=== PATIENT | female | born 1955 | race Caucasian/White ===

== ENCOUNTER → 2016-11-12 | Outpatient (CLI) | payer OTHER ==
[~2016-11-12] MED LIST: BIOTCAP PO; DICL75TA PO; FLUO20CA4 PO; LACTCAP8 PO; LISI-515 PO; MAGN1TAB14 PO; MULT-120 PO; OXYC1TAB63 PO; POTA99TA PO; TYLE325T PO; VITA10002 PO; [UNRECOGNIZED DRUG - OTHER] PO
[2016-11-12 15:12] LABS: AUTOMATED NEUTROPHIL # 5.7 TH/MM3 (1.8-7.7); BASOPHIL # 0.1 TH/MM3 (0-0.2); BASOPHIL % 0.6 % (0.0-2.0); EOSINOPHIL # 0.1 TH/MM3 (0-0.4); HEMATOCRIT 41.3 % (35.0-46.0); HEMO FLAGS DIFF FINAL; LYMPH % 26.1 % (9.0-44.0); LYMPHOCYTE # 2.3 TH/MM3 (1.0-4.8); MEAN CELL VOLUME 80.5 FL (80.0-100.0); MEAN CORPUSCULAR HEMOGLOBIN 26.9 PG (27.0-34.0); MEAN CORPUSCULAR HGB CONC 33.4 % (32.0-36.0); MONO % 6.8 % (0.0-8.0); NEUT % 65.5 % (16.0-70.0); PLATELET COUNT 206 TH/MM3 (150-450); RED BLOOD COUNT 5.13 MIL/MM3 (4.00-5.30); WHITE BLOOD COUNT 8.7 TH/MM3 (4.0-11.0)
[2016-11-12 15:20] LABS: APTT (PATIENT) 27.8 SEC (24.3-30.1); PROTHROMBIN TIME - PATIENT 10.6 SEC (9.8-11.6)
[2016-11-12 15:35] LABS: ALT (GPT) 133 U/L (10-53); ANION GAP 8 MEQ/L (5-15); AST (GOT) 45 U/L (15-37); BICARBONATE 29.4 MEQ/L (21.0-32.0); BLOOD UREA NITROGEN 23 MG/DL (7-18); CHLORIDE 104 MEQ/L (98-107); GLOMERULAR FILTRATION RATE 71 ML/MIN (>89); GLUCOSE,FASTING 94 MG/DL (74-99); POTASSIUM 4.7 MEQ/L (3.5-5.1); SODIUM (NA) 141 MEQ/L (136-145)
[2016-11-12 15:38] LABS: ALKALINE PHOSPHATASE 125 U/L (45-117); TOTAL BILIRUBIN ADULT 0.6 MG/DL (0.2-1.0)
--- NOTE | 2016-11-12 16:14 | RADRPT ---
EXAM DATE/TIME: 11/12/2016 16:11 [place] COMPARISON: No previous studies available for comparison. INDICATIONS : Evaluate for pneumonia, pneumothorax, and communicable disease. Pre op for mass removal in abdomen. MEDICAL HISTORY : None. SURGICAL HISTORY : None. ENCOUNTER: Initial ACUITY: 1 day PAIN SCORE: 0/10 LOCATION: Bilateral chest FINDINGS: PA and lateral views of the chest demonstrate the lungs to be symmetrically aerated without evidence of mass, infiltrate or effusion. The cardiomediastinal contours are unremarkable. Osseous structure s demonstrate mild degenerative changes but are otherwise intact.. CONCLUSION: 1. No acute cardiopulmonary findings. Syed Andrea MD on November 12, 2016 at 16:12 Board Certified Radiologist. This report was verified electronically.
--- NOTE | 2016-11-13 23:32 | EKG ---
Date Performed: 11/12/2016 Time Performed: 15:09:16 PTAGE: 61 years EKG: Sinus rhythm NORMAL ECG NO PREVIOUS TRACING DOCTOR: Nish Cedillo Interpretating Date/Time 11/13/2016 23:29:30
== END ==
LOC: CPRE 14:47
PROVIDERS: ATTEND Obstetrics & Gynecology Gynecologic Oncology
DX: Z01.810 Encounter for preprocedural cardiovascular examination (principal); Z01.811 Encounter for preprocedural respiratory examination; Z01.812 Encounter for preprocedural laboratory examination; R19.09 Other intra-abdominal and pelvic swelling, mass and lump
CPT/HCPCS: 36415; 71020; 80053; 82378; 85025; 85610; 85730; 86304; 93005

== ENCOUNTER 2016-11-23 08:05 | Observation (INO) | payer OTHER ==
[~2016-11-23] VITALS: Ht 165.1 cm; Wt 150.2 kg
[~2016-11-23 08:05] MED LIST changes: -OXYC1TAB63 PO
[2016-11-23] MEDS ORDERED: METOPROLOL TARTRATE 25 MG TAB PO PRN (09:00)
[2016-11-23] MEDS ORDERED: LACTATED RINGER'S 1000 ML IV SCH (09:00)
[2016-11-23] MEDS ORDERED: ceFAZolin 2 GM PREMIX 50 ML IV SCH (09:00)
[2016-11-23] MEDS: SODIUM CHLORID 0.9% 500 ML IV SCH ×2 (09:00→23:53)
[2016-11-23] MEDS ORDERED: INSULIN HUMAN REGULAR 1,000 UNITS/10 ML VIAL SQ PRN (09:00)
[2016-11-23 09:09] VITALS: BP 161/81; PULSE 82; RESP 18; TEMP 98.5; O2SAT 96
[2016-11-23] MEDS ORDERED: HEPARIN SODIUM - SQ 10,000 UNITS/ML VIAL SQ SCH (11:45)
[2016-11-23] MEDS ORDERED: PHENYLEPH/NS 1000 MCG/10 ML SYR IV ONE (12:00)
[2016-11-23] MEDS ORDERED: VECURONIUM BROMIDE 10 MG VIAL IV ONE (12:00)
[2016-11-23] MEDS ORDERED: PROPOFOL 200 MG/20 ML AMP IV ONE (12:00)
[2016-11-23] MEDS ORDERED: ONDANSETRON HCL 4 MG/2 ML VIAL IV PUSH ONE (12:00)
[2016-11-23] MEDS ORDERED: NORMOSOL R INJ 2,000 ML IV ONE (12:00)
[2016-11-23] MEDS ORDERED: LACTATED RINGER'S 1000 ML INJ 3,000 ML IV ONE (12:00)
[2016-11-23] MEDS ORDERED: ePHEDrine/NS 25 MG/5 ML SYR IV ONE (12:00)
[2016-11-23] MEDS ORDERED: ACETAMINOPHEN 1000 MG/100 ML VIAL IV ONE (15:22)
[2016-11-23] MEDS ORDERED: FAMOTIDINE 20 MG/2 ML VIAL ONE ×2 (15:22→19:38)
[2016-11-23] MEDS ORDERED: LIDOCAINE 1%/EPINEPHrine 1:100,000 SOLN 20 ML VIAL ONE (15:38)
[2016-11-23] MEDS ORDERED: DO NOT ADM ANY ANTICOAGULANT DRUGS XX PRN (19:24)
[2016-11-23] MEDS ORDERED: SODIUM CHLORIDE 0.9% FLUSH 5 ML FLUSH FLUSH PRN (19:30)
[2016-11-23] MEDS ORDERED: HYDROmorphone HCL PF 1 MG/ML VIAL IVP PRN (19:30)
[2016-11-23] MEDS ORDERED: diphenhydrAMINE HCL 25 MG CAP PO PRN (19:30)
[2016-11-23] MEDS ORDERED: oxyCODONE/ACETAMINOPHEN 5 MG/325 MG TAB PO PRN ×2 (19:30)
[2016-11-23] MEDS ORDERED: ONDANSETRON HCL 4 MG/2 ML VIAL IVP PRN (19:30)
[2016-11-23] MEDS ORDERED: LORazepam 0.5 MG TAB PO PRN (19:30)
[2016-11-23] MEDS ORDERED: MIDAZOLAM HCL 2 MG/2 ML VIAL ONE (19:33)
[2016-11-23] MEDS ORDERED: fentaNYL CITRATE 250 MCG/5 ML AMP ONE ×2 (19:34→19:38)
[2016-11-23] MEDS ORDERED: SUGAMMADEX SODIUM 200 MG/2 ML VIAL IV PUSH ONE ×2 (19:39)
[2016-11-23] MEDS: D5-1/2 NS + KCL 20 MEQ INJ 1,000 ML IV SCH (19:40)
[2016-11-23] MEDS: KETOROLAC TROMETHAMINE 30 MG/ML (IVP) VIAL IVP SCH (19:45)
[2016-11-23] MEDS: SODIUM CHLORIDE 0.9% FLUSH 5 ML FLUSH FLUSH SCH (19:49)
[2016-11-23 20:30] VITALS: BP 154/81; PULSE 84; RESP 18; TEMP 96.7; O2SAT 94
[2016-11-23 21:37] VITALS: O2SAT 94
[2016-11-24] VITALS: BP 142/73; PULSE 82; RESP 18; TEMP 96.3; O2SAT 97
[2016-11-24 03:12] VITALS: BP 128/76; PULSE 82; RESP 16; TEMP 97.1; O2SAT 97
[2016-11-24] MEDS: KETOROLAC TROMETHAMINE 30 MG/ML (IVP) VIAL IVP SCH ×2 (03:20→09:16)
[2016-11-24] MEDS: D5-1/2 NS + KCL 20 MEQ INJ 1,000 ML IV SCH (05:14)
[2016-11-24 08:00] VITALS: BP 164/102; PULSE 77; RESP 16; TEMP 96.7; O2SAT 100
[2016-11-24] MEDS ORDERED: OXYC1TAB63 PO (08:05)
[2016-11-24 08:42] LABS: BICARBONATE 25.5 MEQ/L (21.0-32.0)
[2016-11-24 08:43] LABS: POTASSIUM 4.5 MEQ/L (3.5-5.1)
[2016-11-24 08:46] LABS: AUTOMATED NEUTROPHIL # 8.8 TH/MM3 (1.8-7.7); BASOPHIL % 0.5 % (0.0-2.0); EOSINOPHIL % 0.1 % (0.0-4.0); HEMATOCRIT 35.1 % (35.0-46.0); HEMO FLAGS DIFF FINAL; LYMPH % 10.2 % (9.0-44.0); LYMPHOCYTE # 1.1 TH/MM3 (1.0-4.8); MEAN CELL VOLUME 79.9 FL (80.0-100.0); MEAN CORPUSCULAR HEMOGLOBIN 27.1 PG (27.0-34.0); MEAN CORPUSCULAR HGB CONC 33.9 % (32.0-36.0); MONO % 6.2 % (0.0-8.0); PLATELET COUNT 157 TH/MM3 (150-450); RED BLOOD COUNT 4.39 MIL/MM3 (4.00-5.30); RED CELL DISTRIBUTION WIDTH 15.6 % (11.6-17.2); WHITE BLOOD COUNT 10.6 TH/MM3 (4.0-11.0)
[2016-11-24] MEDS ORDERED: LISINOPRIL 20 MG TAB PO SCH (09:00)
[2016-11-24] MEDS ORDERED: FLUoxetine HCL 20 MG CAP PO SCH (09:00)
[2016-11-24] MEDS: SODIUM CHLORIDE 0.9% FLUSH 5 ML FLUSH FLUSH SCH (09:00)
[2016-11-24 11:30] VITALS: O2SAT 98
[2016-11-24 12:00] VITALS: BP 154/86; PULSE 75; RESP 16; TEMP 96.5; O2SAT 97
--- NOTE | 2016-11-26 08:37 | MP ---
cc: YANELI SEYMOUR MD, KELLY L. MD DATE OF SURGERY: 11/23/2016 PREOPERATIVE DIAGNOSIS Large cystic pelvic mass. POSTOPERATIVE DIAGNOSIS Right ovarian cystadenoma and endometrial polyp. PROCEDURE Laparoscopy with drainage of cystic mass, robotic-assisted laparoscopic hysterectomy, bilateral salpingo-oophorectomy. 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 ANESTHESIA General endotracheal anesthesia. ESTIMATED BLOOD LOSS 100 ccs. IV FLUIDS 3100 ccs. URINE OUTPUT 400 ccs. FLUID ASPIRATED Fluid aspirated from cystic mass 8 liters. HISTORY A 61-year-old female found on exam and imaging to have a very large abdominal pelvic mass thought to be of ovarian origin, it was smooth-walled cystic with a few subtle septations, no evidence to suggest metastatic disease, tumor markers were normal. She was counseled regarding these findings, presented with surgical options. Pros and cons, risks and benefits discussed. She was seen again in the preop holding area where these findings were again reviewing. She is now absolutely certain that irrespective of the pathology she is in favor of complete hysterectomy and wants the uterus and cervix removed, in addition to both tubes and ovaries. She understands additional staging biopsies may be warranted. FINDINGS Upon entry into the peritoneal cavity, the smooth-walled cystic mass was identified occupying essentially the majority of the abdominal and pelvic cavity. Trocar was inserted into the wall of the mass and aspiration was carried out which removed approximately 4500 ccs of clear fluid and then insufflation of the peritoneal cavity allowed review of the anatomy, no other abnormalities detected. There were no peritoneal implants. There is still a large volume of fluid that remained in the mass. The uterus itself appeared normal. The left tube and ovary had what appeared to be a small functional cyst. Once removed the mass was consistent with a benign cystadenoma. The left ovary had what appeared to be a small benign cyst and there was a benign-appearing endometrial polyp. No evidence of malignancy. Modifier complexity of the case was increased due to body habitus 158 kilograms, modifier should be applied accordingly. PROCEDURE The patient was taken to the operating room and placed in dorsal lithotomy position after general endotracheal anesthesia was administered. Time-out was undertaken. The patient was identified by sight recognition and hospital ID bracelet and the proposed procedure was reviewed and confirmed. She was carefully positioned in padded Santana stirrups. Her arms were padded and secured to the sides. She was further secured to the table with eggcrate padding and tape in across chest over the shoulder fashion. All sites were noted to be properly aligned, no malalignments or pressure points. She was prepped in sterile fashion, draped below the waist, placed in high lithotomy position. Cervix was grasped, uterine cavity sounded, cervix was dilated and a small V-Care manipulator was inserted and secured in usual fashion. Lewis catheter was placed in the bladder. She was returned to low lithotomy position. Change of sterile gloves was undertaken. We completed draping in anticipation of laparoscopy and confirmed that an orogastric airway was in the stomach on suction. On abdominal exam, the outline of the mass was detected and prior to surgery the CAT scan had been reviewed and the left upper quadrant 5-mm cannula was inserted through the abdominal wall into the wall of the mass until 4500 ccs of clear fluid were aspirated. Now insufflation was carried out in the peritoneal cavity. A 12 mm cannula was placed in midline above the umbilicus, 8 mm cannula placed in the right upper quadrant, another 8-mm cannula placed in the left lateral abdomen. The original 5-mm cannula exchanged for a 8-mm cannula. Suction was now continued, another rent was placed in the base of the mass, additional approximately 3500 ccs of fluid were drained for a total of 8 liters. As the wall of the mass collapsed down the anatomy and the peritoneal cavity was surveyed with findings as described above. Robotic system was brought into the operative field, attached in the usual fashion. Monopolar scissors, fenestrated bipolar forceps and Prograsp manipulators were placed in arms number one, two and three, respectively and I took my place at the surgeon's console. Right round ligament was isolated, cauterized, transected. Anterior and posterior leafs of the broad ligament were opened. The right ureter was identified. The posterior peritoneum was opened along the right side of the uterus and cervix as the right utero-ovarian ligament was isolated. Retroperitoneal dissection was carried out above the pelvic brim as the utero-ovarian ligament was isolated, the underlying peritoneum was opened as the infundibulopelvic ligament was elevated and mobilized to the level of the pelvic brim, it was cauterized and transected. Vesicouterine peritoneum dissected off the lower uterine segment and cervix on the right side. The right uterine vessels were skeletonized, cauterized and transected as were the cardinal, paracervical and uterosacral ligaments. Attention was directed toward the left side where the left round ligament was isolated, cauterized, transected. The anterior and posterior leafs of the broad ligament were opened, subtle adhesions were taken down with sharp dissection. The left ureter was identified. The left infundibulopelvic ligament was isolated to the level of the pelvic brim where the infundibulopelvic ligament was cauterized and transected. Posterior peritoneum was opened along the left side of uterus and cervix and the left vesicouterine peritoneum was dissected off the lower uterine segment and cervix. The left uterine vessels were skeletonized, cauterized and transected as were the cardinal, paracervical and uterosacral ligaments. The specimen was withdrawn transvaginally which included the uterus, cervix and both tubes and ovary including the large collapsed mass capsule from the right ovary which were delivered transvaginally and a pneumooccluder balloon was placed in the vagina to maintain pneumoperitoneum. Instruments one and three were exchanged for needle drivers as a 0 Vicryl suture was introduced. The vaginal cuff was closed starting at the left corner, full-thickness closure including the edge of the uterosacral ligament, posterior peritoneum, tied via instrument tie. The closure was held on counter traction as a running full-thickness closure was carried across the vaginal apex to the contralateral corner where it was similarly secured tied via instrument tie, the needle was cut and removed. Pelvis and abdomen were thoroughly irrigated. All sites hemostatic, good margin between the edge of the bladder and the vaginal cuff suture line, good peristalsis of ureters. Hemostatic Ingrid agent was placed across the vaginal cuff and pelvic sidewalls. Pathology returned showing benign specimens. It was felt that all reasonable surgical objectives had been completed. Robotic instruments were removed and the robotic system was disengaged from the operative field. I reentered the bedside under sterile condition. Each of the three Ray-Hillary sponges that had been placed in the peritoneal cavity were grasped and removed under laparoscopic visualization. They were inspected and noted to be removed in their entirety. There were no remaining foreign objects in the peritoneal cavity. Preliminary counts were correct. The 12 mm fascial defect was closed with interrupted 0 Vicryl sutures using a needle apparatus under direct laparoscopic visualization, they were tied securely which rendered the fascia completely airtight and hemostatic. The remaining cannulas were withdrawn. 3-0 Vicryl subcutaneous, 3-0 Vicryl subcuticular and Steri-Strips were used to close these incisions. She was returned to dorsal lithotomy position and exam confirmed the vaginal cuff to be well supported. There were no vaginal lacerations, no remaining foreign objects in the vagina. Superficial irritation of the perineum and periurethral area were rendered hemostatic with the remaining Ingrid hemostatic agent. She was returned to dorsal supine position and was pending reversal of anesthesia when I left the operating room to precede her to the Post Anesthesia Care Unit. MD SUSIE Damon/LANDRY /4:26 AM /6:59 AM
--- NOTE | 2016-11-30 06:43 | MD ---
cc: YANELI SEYMOUR MD,JESNEN Santiago MD ADMISSION DATE: 11/23/2016 DISCHARGE DATE: 11/24/2016 PROCEDURE 11/23/2016 - Robotic-assisted laparoscopic hysterectomy, bilateral salpingo-oophorectomy (with resection of 30-cm right ovarian cystic mass). HOSPITAL COURSE VITAL SIGNS: She did well during the early postop. She remained afebrile, pulse 81-84, respirations 16-20, blood pressure 128-159/73-81, O2 saturations while awake greater than or equal to 97%. GENERAL: Alert and oriented x 3, tolerating oral intake. Lewis removed pending voiding. LUNGS: Clear except for basilar rales. CARDIOVASCULAR: Regular rate and rhythm. ABDOMEN: Soft, clean and dry. Incisions clean. TRIM SAWYER: No bleeding. OBJECTIVE In's and out's of 3560/1450. Labs are pending at the time of this dictation. ASSESSMENT Postoperative day #1, doing well in early postop. Activities and restrictions are reviewed. 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 Questions were answered. She expressed good understanding. PLAN 1. Anticipate she will meet criteria for discharge to home, therefore plan for discharge to home. Our office number is made available. 2. She is to contact our office to schedule follow up in two weeks. 3. She is to resume prior medications. 4. Prescription is provided for Percocet. Jensen Alonzo MD KM/SSB /7:09 AM /5:38 AM
== END 2016-11-24 15:25 | disposition home or self-care (01) ==
LOC: HSDC 08:05 → HSDI 19:20 → HOCB 20:09
PROVIDERS: ADMIT Obstetrics & Gynecology Gynecologic Oncology; ATTEND Obstetrics & Gynecology Gynecologic Oncology
DX: D27.0 Benign neoplasm of right ovary (principal); R19.09 Other intra-abdominal and pelvic swelling, mass and lump; N84.0 Polyp of corpus uteri
CPT/HCPCS: 00840; 58571; 80048; 85025; 86850; 86900; 86901; 88307; 88331; 94150; G0378; J0131; J0690; J1644; J1885; J2250; J2370; J2405; J3010; J3480; J7120